=== PATIENT | male | born 1970 | race Caucasian/White ===

== ENCOUNTER 2021-10-13 06:30 | Emergency (ER) | payer BC, SELFPAY ==
--- NOTE | 2021-10-13 | ECG_ITS ---
Test Reason : CP Blood Pressure : / mmHG Vent. Rate : 076 BPM Atrial Rate : 076 BPM P-R Int : 168 ms QRS Dur : 076 ms QT Int : 392 ms P-R-T Axes : 061 052 069 degrees QTc Int : 441 ms Normal sinus rhythm Normal ECG When compared with ECG of 13-JUL-2016 07:06, No significant change was found Referred By: Generic ED Physician Electronically Signed By:LEANDRO BALDWIN MD
--- NOTE | ~2021-10-13 | CT_ITS ---
EXAMINATION: CT CHEST WITH CONTRAST CLINICAL INFORMATION: Trauma. Ski accident. Left chest wall pain. COMPARISON: Previous chest x-ray most recent from earlier the same day and chest and left rib x-rays September 2012 TECHNIQUE: Multidetector volumetric CT imaging of the chest was obtained after the administration of 65 mL of Omnipaque 350 intravenous contrast without immediate adverse reactions. Axial MIP volume rendering provided. Sagittal and coronal reformatted images were obtained. This CT examination was performed using dose optimization techniques as appropriate, variously including the following: *Automated exposure control *Adjustment of mA and/or kV according to patient size (this includes techniques or standardized protocols for targeted exams where dose is matched to indication/reason for exam; i.e. 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 This is slightly increased from previous x-rays from 2013. There is scarring or subsegmental atelectasis in the left lung. The lungs are otherwise clear. MEDIASTINUM: There is shift of the mediastinal structures to the right. The mediastinum is otherwise normal. PLEURA: There is no pleural effusion or pleural thickening or pneumothorax. AXILLA: No lymphadenopathy. UPPER ABDOMEN: The liver is low in attenuation suggestive of fatty infiltration. There are postsurgical changes following colectomy with surgical staple line seen in the distal transverse colon and splenic flexure. There are postsurgical changes to the upper anterior abdominal wall. There is a small ventral hernia containing fat to the right of midline.. OSSEOUS STRUCTURES: No rib fracture is seen. There are degenerative changes of the spine. There is a probable T11 vertebral body hemangioma. CT/CT chest w con IMPRESSION: Elevated left hemidiaphragm slightly increased from 2013 exams. Linear scarring or subsegmental atelectasis in the left lung. No pleural effusion, pneumothorax or rib fracture seen. Fleischner guidelines were followed.
--- NOTE | ~2021-10-13 | XR_ITS ---
EXAMINATION: XR CHEST CLINICAL INFORMATION: Chest pain COMPARISON: 09/21/2012 TECHNIQUE: Frontal view of the chest was obtained. XR/XR chest 1V FINDINGS/IMPRESSION: No acute radiographic abnormalities. 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 No focal consolidation, pleural effusion or pneumothorax. Heart size is normal. No acute osseous abnormality.
[2021-10-13 06:44] VITALS: BP 140/90; PULSE 75; RESP 22; TEMP 36.9; O2SAT 98; BMI 31.1
[2021-10-13 07:16] VITALS: BP 147/89; PULSE 71; RESP 20; O2SAT 95
[2021-10-13 07:30] LABS: MANUAL DIFF FLAG NO
--- NOTE | 2021-10-13 07:31 | ED.CHESTPAIN ---
HPI - Chest Pain General Chief Complaint: Chest Pain Stated Complaint: chest pains post ski accident 10/10 Time Seen by Provider: 10/13/21 07:30 Source: patient Mode of arrival: ambulatory Limitations: no limitations History of Present Illness HPI narrative: Chest wall pain,injured left chest wall on Wednesday skiing,pain localized left jennifer wall complaint: chest pain Onset (ago): day(s) (3) Timing of current episode: constant Prior episodes: No Onset: other (after trauma) Pain location: left chest Pain radiation: none Severity: severe Quality: aching Relieving factors: nothing Exacerbating factors: nothing Risk Factors Coronary artery disease risk factors: none Related Data Previous Rx's Medication Instructions Recorded ibuprofen 800 mg tablet 800 mg PO TID PRN #30 tab 10/13/21 oxycodone 5 mg tablet 5 mg PO Q6H PRN #15 tab 10/13/21 Allergies Allergy/AdvReac Type Severity Reaction Status Date / Time No Known Allergies Allergy Verified 10/13/21 06:42 Review of Systems Review of Systems: Yes all other systems are reviewed and are negative Constitutional: Constitutional: Reports no additional constitutional complaints Cardiovascular: Cardiovascular: Reports no additional cardiovascular complaints Respiratory: Respiratory: Reports no additional respiratory complaints Gastrointestinal: Gastrointestinal: Reports no additional gastrointestinal complaints [facility] Social History Social History Patient Tobacco Use Status: Never used Tobacco Use of substances other than those prescribed or required for medical reasons: No Advance Directives: No Advance Directives Information Provided: No Physical Exam Vital Signs: Vital Signs: Last Vital Signs Temp 98.5 F 10/13/21 06:44 Pulse 74 10/13/21 10:26 Resp 15 10/13/21 10:26 BP 143/93 H 10/13/21 10:26 Pulse Ox 98 10/13/21 10:26 BMI result Body Mass Index 31.1 Const: General: cooperative and no acute distress Nutritional Appearance: average body habitus Orientation/consciousness: patient oriented x3 Limitations: no limitations HENMT: Head: Yes normal to inspection General nose exam: Normal external nose present Face and sinus: Yes normal facial exam Mouth: Normal oral and palatal mucosa present Teeth and gingiva: dentition normal Neck: Neck: Yes normal visual inspection, Yes full ROM and Yes no lymphadenopathy Thyroid: Thyroid normal Chest: Other: tenderness left chest wall Chest palpation & inspection: normal inspection of the chest Resp: Effort & Inspection: normal respiratory effort and able to speak in complete sentences Auscultation: clear to auscultation bilaterally Cardio: Jugular venous distension: no JVD Rate: regular rate Rhythm: regular rhythm GI: Inspection: Yes normal to inspection Palpation (GI): not firm and nontender Neuro: General: patient oriented x3 Course Reevaluation(s) Reevaluation #1: Workup negative including a CT scan of the chest there is no rib fracture, no pneumothorax, no pulmonary contusion, no Sternal fracture, at this point will discharge the patient home with follow-up with primary care physician Time: 10:39 [facility] - Chest Pain Lab Data Result diagrams: 10/13/21 07:26 10/13/21 07:26 Labs: Lab Results 10/13/21 10/13/21 10/13/21 Range/Units 07:26 07:26 07:26 WBC 5.2 (4.8-10.8) X10*3/uL RBC 4.58 L (4.60-5.80) X10*6/uL Hgb 14.9 (14.0-18.0) g/dl Hct 43.4 (42.0-52.0) % MCV 94.8 (80.0-98.0) fL MCH 32.5 (27.0-33.0) pg MCHC 34.3 (31.0-36.0) g/dl RDW 12.6 (11.0-16.0) % Plt Count 216 (160-400) X10*3/uL MPV 9.0 L (9.4-12.4) fL Immature Gran % (Auto) 0.4 (0.0-0.4) % Neut % (Auto) 55.9 (45-73) % Lymph % (Auto) 27.7 (20-40) % [place] % (Auto) 11.7 H (2-11) % Eos % (Auto) 3.3 (0-4) % Baso % (Auto) 1.0 (0-2) % Lymph # (Auto) 1.5 (1.2-4.9) X10*3/uL [place] # (Auto) 0.6 (0.1-1.2) X10*3/uL Eos # (Auto) 0.2 (0.0-0.4) X10*3/uL Baso # (Auto) 0.1 (0.0-0.2) X10*3/uL Abs Immat Gran (auto) 0.02 (0.00-0.03) X10*3/uL Absolute Neuts (auto) 2.9 (2.0-8.3) x10*3/uL Absolute Nucleated RBC 0.000 (0.0-0.012) X10*3/uL Nucleated RBC % (auto) 0.0 (0.0-0.2) /100WBC Sodium 139 (135-145) mmol/L Potassium 4.9 (3.3-5.1) mmol/L Chloride 106 (96-108) mmol/L Carbon Dioxide 25 (22-29) mmol/L Anion Gap 13 (12-20) BUN 12 (9-16) mg/dL Creatinine 0.74 (0.5-1.4) mg/dL Estim Creat Clear Calc 144.1 Estimated GFR > 60 Random Glucose 120 H (60-115) mg/dL Calcium 9.1 (8.4-10.2) mg/dL Troponin I High Sens < 3.5 (<3.5-35.0) ng/L Imaging Data Chest x-ray: Radiologist's impression: cc: Generic ED Physician~ EXAMINATION: XR CHEST CLINICAL INFORMATION: Chest pain COMPARISON: 09/21/2012 TECHNIQUE: Frontal view of the chest was obtained. XR/XR chest 1V FINDINGS/IMPRESSION: No acute radiographic abnormalities. 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 No focal consolidation, pleural effusion or pneumothorax. Heart size is normal. No acute osseous abnormality. Dictated By: LORRAINE SEGOVIA MD Signed By: <Electronically signed by LORRAINE SEGOVIA MD in OV> 10/13/21 0716 DD/ 0649 TD/TT:? [employer]: QUINN CT scan - chest: Radiologist's impression: s scarring or subsegmental atelectasis in the left lung. The lungs are otherwise clear.? MEDIASTINUM: There is shift of the mediastinal structures to the right. The mediastinum is otherwise normal.? PLEURA: There is no pleural effusion or pleural thickening or pneumothorax.? AXILLA: No lymphadenopathy.? UPPER ABDOMEN: The liver is low in attenuation suggestive of fatty infiltration. There are postsurgical changes following colectomy with surgical staple line seen in the distal transverse colon and splenic flexure. There are postsurgical changes to the upper anterior abdominal wall. There is a small ventral hernia containing fat to the right of midline.. OSSEOUS STRUCTURES: No rib fracture is seen. There are degenerative changes of the spine. There is a probable T11 vertebral body hemangioma. CT/CT chest w con IMPRESSION: Elevated left hemidiaphragm slightly increased from 2013 exams. Linear scarring or subsegmental atelectasis in the left lung. No pleural effusion, pneumothorax or rib fracture seen.? ? Fleischner guidelines were followed. Dictated By: ECG Data ECG #1: Attestation: I personally reviewed and interpreted this ECG as follows: ECG interpretation date: 10/13/21 ECG interpretation time: 07:41 Prior ECG tracings: available for review Pacemaker model: NSR 76 no ischemic changes Discharge Plan Discharge Clinical Impression: Chest wall contusion Patient Disposition: Home, Self-Care Instructions: Chest Wall Pain (ED) Additional Instructions: Please follow-up with primary care physician, return to the emergency room if you worse any concern Prescriptions: New oxycodone 5 mg tablet 5 mg PO Q6H PRN (Reason: pain) Qty: 15 0RF Rx Instructions: partial filing upon pt request ibuprofen 800 mg tablet 800 mg PO TID PRN (Reason: pain) Qty: 30 0RF Referrals: Gerardo Moralez MD [Primary Care Provider] - 2 days
[2021-10-13 07:32] LABS: Basophils Absolute Auto 0.1 X10*3/uL (0.0-0.2); Eosinophils Absolute Auto 0.2 X10*3/uL (0.0-0.4); Eosinophils Percent Auto 3.3 % (0-4); Hematocrit 43.4 % (42.0-52.0); Hemoglobin 14.9 g/dl (14.0-18.0); Imm Gran Abs Auto 0.02 X10*3/uL (0.00-0.03); Imm Gran Pct Auto 0.4 % (0.0-0.4); Lymphocytes Absolute Auto 1.5 X10*3/uL (1.2-4.9); Lymphocytes Percent Auto 27.7 % (20-40); Mean Corpuscular HGB Conc 34.3 g/dl (31.0-36.0); Mean Corpuscular Hemoglobin 32.5 pg (27.0-33.0); Mean Corpuscular Volume 94.8 fL (80.0-98.0); Monocytes Absolute Auto 0.6 X10*3/uL (0.1-1.2); Monocytes Percent Auto 11.7 % (2-11); Neutrophils Absolute Auto 2.9 x10*3/uL (2.0-8.3); Neutrophils Percent Auto 55.9 % (45-73); Platelet Count 216 X10*3/uL (160-400); Red Blood Count 4.58 X10*6/uL (4.60-5.80); Red Cell Distribution Width 12.6 % (11.0-16.0); White Blood Count 5.2 X10*3/uL (4.8-10.8)
[2021-10-13 07:44] LABS: Anion Gap 13 (12-20); Blood Urea Nitrogen 12 mg/dL (9-16); Calcium 9.1 mg/dL (8.4-10.2); Carbon Dioxide 25 mmol/L (22-29); Chloride 106 mmol/L (96-108); Creatinine Clr Calc Pharmacy 144.1; Estimated Glomerular Filt Rate > 60; Glucose Random 120 mg/dL (60-115); Potassium 4.9 mmol/L (3.3-5.1); Sodium 139 mmol/L (135-145)
[2021-10-13 07:51] LABS: Troponin-I High Sensitivity < 3.5 ng/L (<3.5-35.0)
[2021-10-13] MEDS: Ketorolac Tromethamine 15 MG/ML VIAL IVPUSH (08:22)
[2021-10-13] MEDS: Morphine Sulfate 4 MG/ML CARTRIDGE IVPUSH (08:22)
[2021-10-13] MEDS: iohexoL 350 MG/ML 100 ML INFUS..BTL IV (09:09)
--- NOTE | 2021-10-13 10:00 | PC.NURSE ---
pt reports pain 10/10 on the left sided of chest with movement only ns on the monitor
[2021-10-13 10:26] VITALS: BP 143/93; PULSE 74; RESP 15; O2SAT 98
== END 2021-10-13 11:15 | disposition home or self-care (01) ==
PROVIDERS: Emergency Provider Emergency Medicine; PCP Internal Medicine
DX: S20.212A Contusion of left front wall of thorax, initial encounter (principal); W03.XXXA Other fall on same level due to collision with another person, initial encounter; Y93.23 Activity, snow (alpine) (downhill) skiing, snowboarding, sledding, tobogganing and snow tubing; Y92.828 Other wilderness area as the place of occurrence of the external cause; Y99.8 Other external cause status
CPT/HCPCS: 36415; 71045; 71260; 80048; 84484; 85025; 93005; 96374; 96375; 99284; 99285; J1885; J2270; Q9967

== ENCOUNTER 2025-06-19 07:07 | Emergency (ER) | payer BC, SELFPAY ==
[2025-06-19 07:08] VITALS: BP 156/82; PULSE 74; RESP 20; TEMP 35.6; O2SAT 97; BMI 30.3
--- NOTE | 2025-06-19 07:17 | ED.ABDPAIN ---
HPI - Abdominal Pain General Chief Complaint: Abdominal Pain Stated Complaint: stomach issues, severe pain Time Seen by Provider: 06/19/25 07:16 Source: patient Mode of arrival: ambulatory Limitations: no limitations History of Present Illness ED Provider: BONITA SANCHEZ PA-C HPI narrative: 55 year old male presents to the ED today for evaluation of abdominal pain x3 months. Reports pain is intermittent, localized to epigastric region. Surgical history includes 5 hernia repairs, and partial colectomy following high risk polyp assessment s/p colonoscopy. States hes tried OTC acid reducers without much relief. States that the pain often wakes him up from his sleep causing him to dry heave . Denies N/V/D, fevers, and urinary sx. Endorses frequent alcohol intake, denies frequent use of NSAIDs. Related Data Previous Rx's ?Medication ?Instructions ?Recorded ibuprofen 800 mg tablet 800 mg PO TID PRN pain #30 tabs 10/13/21 oxycodone 5 mg tablet 5 mg PO Q6H PRN pain #15 tabs 10/13/21 pantoprazole 20 mg tablet,delayed 20 mg PO DAILY 4 weeks #28 tabs 06/19/25 release Allergies Allergy/AdvReac Type Severity Reaction Status Date / Time No Known Allergies Allergy Verified 06/19/25 07:11 Review of Systems Review of Systems Yes all other systems are reviewed and are negative [facility] Past Medical History Attestation statement: The following information was validated with the patient. Source: old records reviewed and nursing notes reviewed Social History Social History Patient Tobacco Use Status: Never used Tobacco Advance Directives: Yes Advance Directives Information Provided: Yes Advance Directives on File: No Do you have a plan to hurt others: No Plan Physical Exam ED Vital Signs: Vital Signs - 24 hr 06/19/25 07:08 Temperature 96.1 F L Pulse Rate 74 Respiratory Rate 20 Blood Pressure 156/82 H Pulse Oximetry 97 Oxygen Delivery Method Room Air BMI result Body Mass Index 30.3 hypertensive, vitals are otherwise wnl General: Well appearing, in no acute distress. Skin: Warm, dry, intact. No rashes or lesions. Head: Normocephalic, atraumatic. EENT: Hearing is intact b/l. Conjunctiva clear. Sclera is anicteric. PERRLA. EOM intact. Moist mucous membranes.? Cardiac: Chest wall symmetric. RRR Lungs: Normal respiratory effort without accessory muscle use. CTA bilaterally Abdomen: soft, non-tender, non-distended. No rebound tenderness or guarding. Positive BS x4. negative rush sign. Back: No midline spinous or paraspinal tenderness. No step off deformity. Ext: Upper and lower extremities atraumatic, without tenderness, deformity, swelling or erythema. Full ROM throughout Neuro: AOx3. Normal speech. Ambulating with steady gait. Course Course Course Narrative: cbc without leukocytosis or left shift. no anemia, h&h stable. chemistry without acute electrolyte abnormality requiring intervention. no miguel. random glucose 142, no gap. Mild elevation to AST/ALT, likely related to patient's alcohol consumption. Total bili mildly elevated to 1.1, of unknown significance. lipase wnl. Patient's abdominal exam is quite unremarkable. There is no tenderness. He reports 6/10 epigastric discomfort resolved to 0/10 following GI cocktail. I have suspicion for duodenal ulcer. I do not feel as though any imaging is warranted at this time. Will start patient on pantoprazole and have him follow up with his PCP. Patient has remained stable throughout ED visit today. Discussed worrisome signs and symptoms and when to return to the ED. All questions answered at this time. Patient is agreeable with disposition and stable for discharge. Medical Decision Making Medical Decision Making [facility] Narrative: 55 year old male presents to the ED today for evaluation of abdominal pain x3 months. Differential diagnosis includes biliary colic, gastroenteritis, gastritis, PUD. Abdominal exam without peritoneal signs. No evidence of acute abdomen at this time. Well appearing. Moderate suspicion for acute hepatobiliary disease (including acute cholecystitis). Less likely to represent acute pancreatitis, perforated ulcer/ GI bleed, acute infectious processes (pneumonia, hepatitis, pyelonephritis), atypical appendicitis, vascular catastrophe, bowel obstruction or viscus perforation. Presentation not consistent with other acute, emergent causes of abdominal pain at this time. Plan: labs, gi cocktail, reassessment Differential Diagnosis Differential Diagnoses: The differential diagnosis associated with the presentation includes as above. Admission/Observation not indicated. Lab Data [facility] Lab Attestation statement: I reviewed the patient's lab results. As above 06/19/25 07:32 11/11/25 07:32 Labs: Lab Results 06/19/25 Range/Units 07:32 WBC 5.4 (4.8-10.8) X10*3/uL RBC 4.87 (4.60-5.80) X10*6/uL Hgb 15.5 (14.0-18.0) g/dl Hct 46.0 (42.0-52.0) % MCV 94.5 (80.0-98.0) fL MCH 31.8 (27.0-33.0) pg MCHC 33.7 (31.0-36.0) g/dl RDW 12.8 (11.0-16.0) % Plt Count 228 (160-400) X10*3/uL MPV 8.6 L (9.4-12.4) fL Immature Gran % (Auto) 0.2 (0.0-0.4) % Neut % (Auto) 47.3 (45-73) % Lymph % (Auto) 39.7 (20-40) % [place] % (Auto) 10.8 (2-11) % Eos % (Auto) 1.3 (0-4) % Baso % (Auto) 0.7 (0-2) % Lymph # (Auto) 2.2 (1.2-4.9) X10*3/uL [place] # (Auto) 0.6 (0.1-1.2) X10*3/uL Eos # (Auto) 0.1 (0.0-0.4) X10*3/uL Baso # (Auto) 0.0 (0.0-0.2) X10*3/uL Abs Immat Gran (auto) 0.01 (0.00-0.03) X10*3/uL Absolute Neuts (auto) 2.6 (2.0-8.3) x10*3/uL Absolute Nucleated RBC 0.000 (0.0-0.012) X10*3/uL Nucleated RBC % (auto) 0.0 (0.0-0.2) /100WBC Sodium 140 (135-145) mmol/L Potassium 4.3 (3.3-5.1) mmol/L Chloride 107 (96-108) mmol/L Carbon Dioxide 23 (22-29) mmol/L Anion Gap 14 (12-20) BUN 14 (9-16) mg/dL Creatinine 0.76 (0.5-1.4) mg/dL Estim Creat Clear Calc 128.2 Estimated GFR > 60 Random Glucose 142 H (60-115) mg/dL Calcium 9.6 (8.4-10.2) mg/dL Total Bilirubin 1.1 H (0.0-1.0) mg/dL Direct Bilirubin 0.3 (0.0-0.5) mg/dL AST 41 H (5-37) U/L ALT 63 H (0-40) U/L Alkaline Phosphatase 63 (39-117) U/L Total Protein 7.0 (6.5-8.0) g/dL Albumin 4.5 (3.5-5.0) g/dL Lipase 38 (8-78) U/L External Record Review External record reviewed: Inpatient record Prescription Management I considered prescription management with: Other (Pantoprazole) Social Determinants Patient?s care significantly limited by Social Determinants of Health including: Other Social Determinant of Health Medications Administered Discontinued Medications Generic Name Dose Route Start Last Admin Trade Name Freq PRN Reason Stop Dose Admin Al Hydroxide/Mg Hydroxide 30 ml 06/19/25 07:31 06/19/25 08:03 Magnesium Hydrox/Alum Hydrox 30 Ml Oral.Susp PO 06/19/25 07:32 30 ml ONCE ONE Administration Famotidine 20 mg 06/19/25 07:31 06/19/25 08:03 Famotidine 20 Mg Tablet PO 06/19/25 07:32 20 mg ONCE ONE Administration Lidocaine HCl 15 ml 06/19/25 07:31 06/19/25 08:03 Lidocaine Hcl Viscous 2 % 15 Ml Solution MUCOUS MEM 06/19/25 07:32 15 ml ONCE ONE Administration Critical Care Time Critical Care Time Critical Care Time: No Discharge Plan Discharge Clinical Impression: Abdominal pain Patient Disposition: Home, Self-Care Instructions: Peptic Ulcer (ED), Abdominal Pain (ED) Additional Instructions: You were seen in the ED today for evaluation of upper abdominal pain. Your bloodwork today is reassuring. I have high suspicion that your symptoms are caused by a duodenal ulcer. I am sending Pantoprazole to your pharmacy, please take this as directed for the next 4 weeks. Schedule a follow up with your primary care provider, they may want to schedule an outpatient upper endoscopy in order to formally diagnose an ulcer. Avoid alcohol, NSAIDs, spicy foods, and foods that are high acidity as these may worsen your symptoms. In the event your symptoms change or worsen, please return to the ED. In case of emergency, dial 911. Prescriptions: New pantoprazole 20 mg tablet,delayed release (DR/EC) 20 mg PO DAILY 28 Days Qty: 28 0RF No Action oxycodone 5 mg tablet 5 mg PO Q6H PRN (Reason: pain) Qty: 15 0RF Rx Instructions: partial filing upon pt request ibuprofen 800 mg tablet 800 mg PO TID PRN (Reason: pain) Qty: 30 0RF Referrals: Gerardo Moralez MD [Primary Care Provider, Medical] Print Language: Arabic
[2025-06-19 07:35] LABS: MANUAL DIFF FLAG NO
[2025-06-19 07:37] LABS: Hematocrit 46.0 % (42.0-52.0); Hemoglobin 15.5 g/dl (14.0-18.0); Imm Gran Abs Auto 0.01 X10*3/uL (0.00-0.03); Imm Gran Pct Auto 0.2 % (0.0-0.4); Lymphocytes Absolute Auto 2.2 X10*3/uL (1.2-4.9); Mean Corpuscular HGB Conc 33.7 g/dl (31.0-36.0); Mean Corpuscular Hemoglobin 31.8 pg (27.0-33.0); Mean Corpuscular Volume 94.5 fL (80.0-98.0); NRBC Abs Auto 0.000 X10*3/uL (0.0-0.012); NRBC Pct Auto 0.0 /100WBC (0.0-0.2); Platelet Count 228 X10*3/uL (160-400); Red Blood Count 4.87 X10*6/uL (4.60-5.80); White Blood Count 5.4 X10*3/uL (4.8-10.8)
--- OUTSIDE RECORDS SUMMARY | 2025-06-19 07:53 | XMS_ITS | Encounter Summary ---
Author Organization [facility] Address [address] [facility] [address] [place] [phone] Phone Care Team Providers Care Floor Layer Tile Name Role Phone Gerardo Moralez MD Primary Care Provider [phone] Encounter Details Date Type Department Care Team (Late st Contact Info) Description 01/08/2022 Procedure Pass [facility] [address] [place] [address] Social History Tobacco Use Types Packs/Day Years Used Date Smoking Tobacco: Never Smokeless Tobacco: Never Alcohol Use Standard Drinks/Week Comments Yes 12 (1 standard drink = 0.6 oz pu re alcohol) Sex and Gender Information Value Date Recorded Sex Assigned at Male 07/08/2020 11:43 AM EST Legal Sex Male 10:52 AM EDT Gender Identity Male 07/08/2020 11:43 AM EST Sexual Orientation Straight 07/08/2020 11 :43 AM EST documented as of this encounter Plan of Treatment Not on file documented as of this encounter Visit Diagnoses Not on filedocumented in this encounter Care Teams Floor Layer Tile Relationship Specialty Start Date End Date Gerardo Moralez MD [address] [place] [id number] PCP - General Internal Medicine 01/22/20 documented as of this encounter Additional Source Comments The information contained in this document represents components of the legal health record. It is not the complete legal health record.[facility]
--- OUTSIDE RECORDS SUMMARY | 2025-06-19 07:53 | XMS_ITS | Encounter Summary ---
Author Organization [facility] Address [address] [facility] [address] [place] [address] Phone Care Team Providers Care Mate First Name Role Phone Gerardo Moralez MD Primary Care Provider [phone] Encounter Details Date Type Department Care Team (Late st Contact Info) Description 05/08/2021 Procedure Pass [facility] [address]iop [address] [place] [address] Social History Tobacco Use Types Packs/Day Years [...] on filedocumented in this encounter Care Teams Mate First Relationship Specialty Start Date End Date Gerardo Moralez MD [address] [place] [id number] PCP - General Internal Medicine 01/22/20 documented as of this encounter Additional Source Comments The information contained in this document represents components of the legal health record. It is not the complete legal health record.[facility]
--- OUTSIDE RECORDS SUMMARY | 2025-06-19 07:53 | XMS_ITS | Patient Health Record ---
Author Organization [facility] Address [address] [place] [address] Care Team Providers Care Front Office Manager Name Role Phone Johnny Morejon MD Primary Care Provider Nina Berger [phone] Reason For Referral No Information Medications Medication SIG (Take, Route, Fr equency, Duration) Notes Start Date End Date Status Meloxicam 15 MG 1 tablet Orally Once a day; Duration: 30 day(s) 07/17/2015 Active Problems Problem Type SNOMED Code ICD Code Onset Dates Problem Status W/U Status Risk Notes Problem Plantar fascial fibromatosis (36990024) Plantar fascial fibromatosis (M72.2) Active confirmed Encounters Encounter Location Date Provider Diagnosis [address] [address] 06/13/2025 Nina Spear Plan Of Treatment Pending Test Test Name Order Date X ray : Foot, left 2V 01/02/2015 X ray : Foot, right 2V 01/02/2015 [id number] TENDON SHEATH/LIGAMENT 0 01/23/2015 [id number] TENDON SHEATH/LIGAMENT 0 02/27/2015 Next Appt Details Provider Name:Nina meadows, 09/10/2025 01:00:00 PM, [address] [place], [address], Insurance Providers Payer Name Payer Address Payer Phone Subscriber Number Group Number Insured Name Patient Relationship to Insured Coverage Start Date Coverage End Date [facility] [address] [place] [address] [id number] Self - patient is the insured Medical (General) History Medical History History ICD Code Chicken pox Surgical History Surgery Date(Month/Year) eye surgery 05/2015
--- OUTSIDE RECORDS SUMMARY | 2025-06-19 07:53 | XMS_ITS | Encounter Summary ---
Author Organization [facility] Address [address] [place] [address] Phone Care Team Providers Care Wiring Technician Name Role Phone Gerardo Moralez MD Primary Care Provider [phone] Encounter Details Date Type Department Care Team (Late st Contact Info) Description 07/11/2020 Procedure Pass [facility] [address] [place] [address] Social History Tobacco Use Types Packs/Day Years [...] AM EST documented as of this encounter Functional Status * Calculated C-SSRS Risk Score (Lifetime/Recent) Answer Date of Assessment Author No Risk Indicated 07/11/2020 5:00 PM EST Ambika Gaona, SHREE * Nye Suicide Severity Rating Scale (Screener/Recent Self-Report) Question Answer Date of Assessment Author 1. Wish to be (Past 1 Month) No 07/11/2020 5:00 PM EST Ambika Gaona, RN 2. Non-Specific Active Suicidal Thoughts (Past 1 Month) No 07/11/2020 5:00 PM EST Ambika Gaona, RN 6. Suicidal Behavior (Lifetime) No 07/11/2020 5:00 PM EST Ambika Gaona, SHREE documented as of this encounter Plan of Treatment Not on file documented as of this encounter Visit Diagnoses Not on filedocumented in this encounter Care Teams Wiring Technician Relationship Specialty Start Date End Date Gerardo Moralez MD [address] [place] [id number] PCP - General Internal Medicine 01/22/20 documented as of this encounter Additional Source Comments The information contained in this document represents components of the legal health record. It is not the complete legal health record.[facility]
--- OUTSIDE RECORDS SUMMARY | 2025-06-19 07:53 | XMS_ITS | Encounter Summary ---
Author Organization [facility] Address [email or web address] [facility] [address] [place] [id number] Phone Care Team Providers Care Street Cleaning Equipment Operator Name Role Phone Gerardo Moralez MD Primary Care Provider [phone] Encounter Details Date Type Department Care Team (Late st Contact Info) Description 09/05/[address] [facility] [address] [place] [address] Social History Tobacco Use Types Packs/Day Years [...] on filedocumented in this encounter Care Teams Street Cleaning Equipment Operator Relationship Specialty Start Date End Date Gerardo Moralez MD [address] [place] [id number] PCP - General Internal Medicine 01/22/20 documented as of this encounter Additional Source Comments The information contained in this document represents components of the legal health record. It is not the complete legal health record.[facility]
--- OUTSIDE RECORDS SUMMARY | 2025-06-19 07:53 | XMS_ITS | Clinical Summary ---
Author Organization [facility] Address [address] [place] [phone] Phone Care Team Providers Care Silo Tender Name Role Phone Gerardo Moralez MD Primary Care Provider [phone] Allergies No known active allergies Medications valACYclovir (VALTREX) 500 MG tablet 1 Active RESTASIS 0.05 % suspension Place 1 drop into each eye daily. 1 Active sertraline (ZOLOFT) 50 MG tablet Take 50 mg by mouth daily. 1 Active oxyCODONE 5 MG immediate release tablet Take 1 tablet (5 mg total) by mouth every 4 (four) hours as needed for moderate pain. Partial fill ok 20 tablet 2 Active ibuprofen (ADVIL,MOTRIN) 200 MG tablet Take 3 tablets (600 mg total) by mouth every 6 (six) hours as needed for pain (specific location in comments). Please alternate with Tylenol every 3 hours as needed for mild or moderate pain. 2 Active acetaminophen (TYLENOL) 325 mg tablet Take 2 tablets (650 mg total) by mouth every 6 (six) hours as needed for mild pain. 0 2 Active Active Problems Problem Noted Date Diagnosed Date S/P repair of ventral hernia 01/08/2022 Ventral hernia without obstruction or gangrene 1 09/11/2019 Anxiety Osteoarthritis Hernia of abdominal wall Resolved Problems Problem Noted Date Diagnosed Date Resolved Date Abnormal LFTs 07/08/2020 Hypertensive disorder 2019 Colon polyps 07/08/2020 Overview (07/08/2020): removed Immunizations Immunization Administration Dates Next Due COVID-19 (Pre-05/31) Moderna Vaccine, mRNA, PF 11/22/2020,10/25/2020 Hepatitis A, Adult 05/25/2019 Hepatitis A, Unspecified 02/07/2019 Hepatitis B Adult 05/25/2019,03/27/2019 Hepatitis B, unspecified formulation 02/07/2019 INFLUENZA, SPLIT VIRUS, TRIV ALENT W/ PRESERVATIVE IM 05/25/2019 Influenza Quadrivalent MDCK Preservative Free IM 05/14/2021 Influenza Quadrivalent Preservative Free IM 12/0 11/2019,05/04/2018 Td, unspecified formulation 03/06/2020 Tdap 04/13/2018,01/23/2010 Zoster recombinant 05/14/2021,02/07/2021, 021 Family History Medical History Relation Comments Colon cancer Brother Colon polyps Father Lung cancer Mother Relation Status Comments Brother Alive Daughter Alive Father Alive Mother Son Alive Social History Tobacco Use Types Packs/Day Years Used Date Smoking Tobacco: Never Smokeless Tobacco: Never Alcohol Use Standard Drinks/Week Comments Yes 12 (1 standard drink = 0.6 oz pu re alcohol) Education Answer Date Recorded Are you interested in more education? Not on luciana e 12/04/2022 Are you concerned about learning? Not on file 12/04/2022 No 12/04/2022 No 12/04/2022 Digital Access Answer Date Recorded No 01/05/2023 No 01/05/2023 Reliable internet access at home? Not on file 01/05/2023 Device with a working camera? Not on file Sex and Gender Information Value Date Recorded Sex Assigned at Male 07/08/2020 11:43 AM EST Legal Sex Male 10:52 AM EDT Gender Identity Male 07/08/2020 11:43 AM EST Sexual Orientation Straight 07/08/2020 11 :43 AM EST Last Filed Vital Signs Vital Sign Reading Time Taken Comments Blood Pressure 127/67 01/09/2022 8:12 AM EDT Pulse 78 01/09/2022 8:12 AM EDT Temperature 36.7 C (98 F) 01/09/2022 8:12 AM EDT Respiratory Rate 16 01/09/2022 8:12 AM EDT Oxygen Saturation 94% 01/09/2022 8:12 AM EDT Inhaled Oxygen Concentration - - Weight 104.3 kg (230 lb) 01/01/2022 8:51 AM EDT Height 182.9 cm (6') 01/01/2022 8:51 AM EDT Body Mass Index 31.19 01/01/2022 8:51 AM EDT Plan of Treatment Health Maintenance Due Date Last Done Comments LIPID PANEL 1968 DEPRESSION SCREENING 1980 HEPATITIS C SCREENING 1986 HIV ONE-TIME SCREENING (18-65 YEARS) 1986 COLOGUARD 2013 FIT TEST 2013 FOBT 2013 SIGMOIDOSCOPY 2013 VIRTUAL COLONOSCOPY 2013 PNEUMOCOCCAL VACCINES (50+ years) (1 of 1 - PCV) 2018 INFLUENZA VACCINE (#1) 2025 , 07/12/2020, 05/25/2019, Additional history exists COVID-19 VACCINE (2024- season) 2025 12/03/2021, 07/10/2021, 11/22/2020, Additional history exists COLONOSCOPY 01/21/2026 01/21/2023 COLORECTAL CANCER SCREENING 01/21/2026 Adult Td,Tdap Booster 03/06/2030 03/06/2020 , 04/13/2018, 01/23/2010 RSV VACCINE (1 - 1-dose 75+ series) 2043 HEPATITIS A VACCINES Aged Out 05/25/2019, 02/08/20 19 No longer eligible based on patient's age to complete this topic ZOSTER VACCINES Completed 05/14/2021, 09/2020, 02/07/2021 SMOKING STATUS SCREENING (Once After 26 Yrs) Completed 01/01/2022 HIB VACCINES Aged Out No longer eligi ble based on patient's age to complete this topic IPV VACCINES Aged Out No longer eligi ble based on patient's age to complete this topic MENINGOCOCCAL VACCINES (ACWY) Aged Out No longer eligible based on patient's age to complete this topic MENINGOCOCCAL VACCINES (B) Aged Out N o longer eligible based on patient's age to complete this topic Medical Devices Implanted Type Area Leather Repairer Device Identifier Shelf Expiration Date Model / Serial / Lot Graft Mesh [id number] Synthetic Abdominal Absorbable Coated Ellipse Polypropylene Sepra Ventralight St Cs/1ea - [id number] Implanted:Qty: 1 on 07/11/2020 by Fred Kellogg MD at [facility] STANDARD Abdomen DAVOL 02/03/2022 [id number] / / [id number] Mesh Graft 1.3x1.55in 3.3 3.9cm Med Perfix Polypropylene Monofilament Plug Inguinal Hernia Soft Tissue Repair Cs/2ea - [id number] Implanted:Qty: 1 on 09/05/2020 by Fred Kellogg MD at [facility] STANDARD Right: Inguinal DAVOL 08/05/2024 [id number] / / [id number] Patch Sepra 3.1x4.7in Sm Graft Mesh Ventrio St Polypropylene Hernia Hydrogel Pocket Anterior Open Repair Oval Ca/1ea - [id number] Implanted:Qty: 1 on 05/08/2021 by Fred Kellogg MD at [facility] STANDARD N/A: Abdomen DAVOL 09/05/2022 [id number] / / [id number] Graft Mesh [id number] Synthetic Abdominal Absorbable Coated Ellipse Polypropylene Sepra Ventralight St Cs/1ea - [id number] Implanted:Qty: 1 on 01/08/2022 by Fred Kellogg MD at [facility] STANDARD N/A: Abdomen DAVOL 05/06/2023 [id number] / / [id number] Procedures Procedure Name Priority Date/Time Associated Diagnosis Comments COLONOSCOPY FOR RESULT ENTRY ONLY Routine 01/21/2023 from Last 3 Months or Most Recently Relevant to Health Maintenance Results * COLONOSCOPY FOR RESULT ENTRY ONLY (01/21/2023) Colonoscopy External Historical Provider HEALTH MAINTENANCE Final Result from Last 3 Months or Most Recently Relevant to Health Maintenance Insurance BLUE [employer] [address] [address] CROSS OUT OF STATE PPO BLUE CROSS OUT OF STATE PPO BLUE CROSS OUT OF STATE PPO BLUE CROSS OUT OF STATE PPO BLUE CROSS OUT OF STATE PPO BLUE CROSS OUT OF STATE PPO Advance Directives For more information, please contact: [phone] (9AM - 5PM [facility], Wednesday-Wednesday) Documents on File Type Date Recorded Patient Supervisor Quality Control Expl anation Healthcare Proxy 07/22/2020 12:06 PM Care Teams Silo Tender Relationship Specialty Start Date End Date Gerardo Moralez MD [address] [place] [phone] PCP - General Internal Medicine 01/22/20 Additional Source Comments The information contained in this document represents components of the legal health record. It is not the complete legal health record.[facility]
[2025-06-19 07:57] LABS: Alanine Aminotransferase 63 U/L (0-40); Albumin Level 4.5 g/dL (3.5-5.0); Alkaline Phosphatase 63 U/L (39-117); Anion Gap 14 (12-20); Aspartate Amino Transferase 41 U/L (5-37); Blood Urea Nitrogen 14 mg/dL (9-16); Calcium 9.6 mg/dL (8.4-10.2); Carbon Dioxide 23 mmol/L (22-29); Chloride 107 mmol/L (96-108); Creatinine Clr Calc Pharmacy 128.2; Estimated Glomerular Filt Rate > 60; Lipase 38 U/L (8-78); Potassium 4.3 mmol/L (3.3-5.1); Sodium 140 mmol/L (135-145); Total Protein 7.0 g/dL (6.5-8.0)
[2025-06-19] MEDS: Magnesium Hydrox/Alum Hydrox 30 ML ORAL.SUSP PO (08:03)
[2025-06-19] MEDS: Lidocaine HCl Viscous 2 % 15 ML SOLUTION MUCOUS MEM (08:03)
[2025-06-19 10:06] VITALS: BP 146/86; PULSE 68; RESP 20; TEMP 36.7; O2SAT 97
== END 2025-06-19 10:08 | disposition home or self-care (01) ==
PROVIDERS: Emergency Provider Emergency Medicine; PCP Internal Medicine
DX: R10.9 Unspecified abdominal pain (principal); Z98.890 Other specified postprocedural states
CPT/HCPCS: 36415; 80048; 80076; 83690; 85025; 99282; 99283